=== PATIENT | female | born 1975 | race American Indian/Alaskan Native ===

== ENCOUNTER 2018-09-18 22:30 | Inpatient (IN) | payer MEDICAID ==
[2018-09-18] MEDS ORDERED: SUBLIMAZE IV PRN (22:48)
[2018-09-18] MEDS ORDERED: ZOFRAN IV PRN (22:48)
--- NOTE | 2018-09-18 22:58 | History and Physical Report ---
History of Present Illness Date of examination: 09/18/18 (pt arrived by EMS after delivering @ home; placenta still inside) Date of admission: 09/18/18 22:30 History of present illness: Pt states she did not know she was until 2 weeks ago, "I thought I was going through the change." EDC unknown NICU estimates the baby to be approx 35-36 weeks 1EAB 1 SAB Pt denies any complications with any of her deliveries All vaginal Med HX denies Surgical HX denies Smokes 1-2 Black n Milds QD Was smoking Marijuana until she was told she was Denies ETOH Medications and Allergies Active Meds: Active Medications Fentanyl (Sublimaze) 100 mcg IV Q2H PRN PRN Reason: Labor Pain Lactated Ringer's (Lactated Ringers) 1,000 mls @ 125 mls/hr IV DIRECT MANDY Oxytocin/Sodium Chloride (Pitocin/Ns 20 Unit/1000ml Drip) 20 units in 1,000 mls @ 125 mls/hr IV DIRECT MANDY Ondansetron HCl (Zofran) 4 mg IV Q8H PRN PRN Reason: Nausea And Vomiting - Vital Signs Vital signs: Vital Signs Pulse BP 75 126/57 09/18/18 22:50 09/18/18 22:50 Temp Pulse Resp BP Pulse Ox 75 126/57 09/18/18 22:50 09/18/18 22:50 Results All other labs normal. Assessment and Plan 43yo now with this delivery.Home Delivery No PNC AMA All labs ordered UDS ordered
[2018-09-18] MEDS ORDERED: PITOCin/NS 20 UNIT/1000ML DRIP 20 UNITS/1,000 ML BAG IV SCH (23:00)
[2018-09-18] MEDS ORDERED: LACTATED RINGERS 1,000 ML IV SCH (23:00)
--- NOTE | 2018-09-18 23:06 | Procedure Note ---
OB Delivery Note - Delivery Date of Delivery: 09/18/18 Watch Adjuster: KENDY HAYES (delivered @ home) Estimated blood loss: 500cc - Vaginal Delivery presentation: vertex Intrapartum events: no care - Infant A at 1 minute: 5 at 5 minutes: 6 (assigned by EMS) Gender: Female (wgt 4-12; baby stable in NICU)
[2018-09-18] MEDS ORDERED: IBUPROFEN PO ONE (23:10)
[2018-09-18] MEDS ORDERED: LANSINOH TP PRN (23:11)
[2018-09-18] MEDS ORDERED: PHENERGAN PO PRN (23:11)
[2018-09-18] MEDS ORDERED: DULCOLAX PR PRN (23:11)
[2018-09-18] MEDS ORDERED: TUCKS PAD TP PRN (23:11)
[2018-09-18] MEDS ORDERED: BENADRYL PO PRN (23:11)
[2018-09-18] MEDS ORDERED: PHENERGAN PR PRN (23:11)
[2018-09-18] MEDS: IBUPROFEN PO SCH (23:15)
[2018-09-18 23:37] LABS: Hepatitis C Virus Antibody Non-Reactive (NonReactive)
[2018-09-18 23:38] LABS: Basophils # (Auto) 0.1 K/mm3 (0.0-0.1); Basophils % (Auto) 1.1 % (0.0-1.8); Eosinophils % (Auto) 0.4 % (0.0-4.3); Hematocrit 40.4 % (30.3-42.9); Hemoglobin 14.2 gm/dl (10.1-14.3); Lymphocytes # (Auto) 2.5 K/mm3 (1.2-5.4); Lymphocytes % (Auto) 27.9 % (13.4-35.0); Mean Corpuscular HGB Conc 35 % (30-34); Mean Corpuscular Volume 104 fl (79-97); Monocytes # (Auto) 0.4 K/mm3 (0.0-0.8); Monocytes % (Auto) 4.2 % (0.0-7.3); Platelet Count 204 K/mm3 (140-440); Red Blood Count 3.91 M/mm3 (3.65-5.03); Red Cell Distribution Width 12.9 % (13.2-15.2)
[2018-09-18] MEDS ORDERED: SODIUM CHLORIDE FLUSH SYRINGE 10 ML IV PRN (23:45)
[2018-09-19 00:05] LABS: Bilirubin,Urine NEG (Negative); Blood,Urine MOD (Negative); Color,Urine Yellow (Yellow); Mucus,Urine FEW /HPF; Protein,Urine <15 mg/dL mg/dL (Negative); Urobilinogen,Urine < 2.0 mg/dL (<2.0)
[2018-09-19 00:29] LABS: Amphetamine Screen,Urine PRESUMPTIVE NEGATIVE; Benzodiazepines Screen,Urine PRESUMPTIVE NEGATIVE; Cocaine Screen,Urine PRESUMPTIVE NEGATIVE; Methadone Screen,Urine PRESUMPTIVE NEGATIVE; Opiate Screen,Urine PRESUMPTIVE NEGATIVE
[2018-09-19 00:48] LABS: Cannabinoid Screen,Urine PRESUMPTIVE POSITIVE
[2018-09-19] MEDS: IBUPROFEN PO SCH ×4 (05:02→23:25)
[2018-09-19] MEDS ORDERED: BOOSTRIX IM ONE (06:00)
--- NOTE | 2018-09-19 08:15 | Progress Note ---
Assessment and Plan patient OOB and dressed in street clothes. Pt reports bleeding is very light. Plans on breast and bottle feeding. VSSAF, post delivery H&H ordered for 11:11 this AM. Case management consult ordered. Continue current pathway. - Patient Problems (1) Encounter for care after unplanned out of hospital delivery Current Visit: Yes Status: Acute Subjective - Subjective Date of service: 09/19/18 Principal diagnosis: day #1 s/p home delivery, no PNC Patient reports: appetite normal, voiding normally, pain well controlled, ambulating normally, no dizzy ambulation, no nauseated : in NICU, bottle feeding Objective - Vital Signs Latest vital signs: Vital Signs Temp Pulse Resp BP Pulse Ox 09/19/18 04:08 98.7 F 73 16 117/55 96 09/19/18 00:53 98.6 F 63 18 125/69 99 09/19/18 00:10 68 154/71 09/18/18 23:54 80 126/73 09/18/18 23:39 59 L 133/72 09/18/18 23:30 16 09/18/18 23:24 69 159/78 09/18/18 23:15 16 09/18/18 23:09 81 133/93 09/18/18 22:54 78 141/66 09/18/18 22:50 75 126/57 Intake and Output 09/18/18 09/19/18 09/19/18 23:59 07:59 15:59 Intake Total 200 Output Total 200 Balance 0 Intake: Oral 200 Output: Urine 200 Void 200 Other: Total, Intake Amount 200 Total, Output Amount 200 Weight 47.627 kg Estimated Blood Loss 500 - Exam Breasts: Present: normal Cardiovascular: Present: Regular rate Lungs: Present: Clear to auscultation, Normal air movement Abdomen: Present: normal appearance, soft Uterus: Present: normal, firm, fundal height at umbilicus Extremities: Present: normal - Labs Labs: Abnormal lab results 09/18/18 Range/Units 22:52 MCV 104 H (79-97) fl MCH 36 H (28-32) pg MCHC 35 H (30-34) % RDW 12.9 L (13.2-15.2) %
[2018-09-19] MEDS ORDERED: PRENATAL VITAMIN PO SCH (10:00)
[2018-09-19] MEDS ORDERED: COLACE PO SCH (10:00)
[2018-09-19 12:50] LABS: Hematocrit 33.6 % (30.3-42.9); Hemoglobin 11.4 gm/dl (10.1-14.3)
[2018-09-19] MEDS: MILK OF MAGNESIA PO PRN ×2 (12:54→22:13)
[2018-09-19] MEDS: TYLENOL PO PRN (22:13)
[2018-09-19] MEDS ORDERED: M-M-R II VACCINE SUB-Q ONE (23:11)
[2018-09-20] MEDS: TYLENOL PO PRN (02:47)
--- NOTE | 2018-09-20 06:15 | Discharge Summary ---
Providers - Providers Date of Admission: 09/18/18 22:30 Date of discharge: 09/20/18 (pt agrees with d/c) Attending physician: DILSHAD RICHARD 09/19/18 08:09 Consult to Case Management [CONS] Routine Services Needed at Discharge: Other Notified:: case management Phone number called:: [phone]. [phone] Was contact made?: Yes Additional Physician Instructions: no care, +THC, home delivery premature baby Primary care physician: [employer] Hospitalization Reason for admission: other (delivered at home) Episiotomy: none Laceration: none Other procedures: none complications: none Discharge diagnosis: delivery [place] baby: female Hospital course: home delivery pt OOB for AM care VSS FF below umb Lochia scant Perineum intact H&H stable Pt is asymptomatic Doing well P: d/c today f/u 6 weeks PP care Condition at discharge: Good Disposition: DC-01 TO HOME OR SELFCARE - Discharge Diagnoses (1) Normal spontaneous vaginal delivery Status: Acute Comment: RTO for PP care in 6 weeks Plan - Provider Discharge Summary Activity: routine, no sex for 6 weeks, no heavy lifting 4 weeks, no strenuous exercise Diet: routine Instructions: routine Additional instructions: [] Smoking cessation referral if applicable(refer to patient education folder for contact #) [] Refer to [facility] Booklet Call your doctor immediately for: * Fever > 100.5 * Heavy vaginal bleeding ( >1 pad per hour) * Severe persistent headache * Shortness of breath * Reddened, hot, painful area to leg or breast * Drainage or odor from incision. * Keep incision clean and dry at all times and follow doctor's instructions regarding bathing/showering - Follow up plan Follow up: PRIMARY CARE, [Primary Care Provider] - 7 Days KENDY HAYES CNM [Advanced Practice Nurse] - 6 Weeks (Congratulations! Please call [phone] to schedule your appointment in 6 weeks. Motrin/ibuprofen for cramping/pain. Call with concerns.)
[2018-09-20] MEDS ORDERED: MILK OF MAGNESIA PO PRN (06:24)
[2018-09-20] MEDS: IBUPROFEN PO SCH (06:32)
[2018-09-20 09:20] VITALS: BP 119/67
== END 2018-09-20 09:21 | disposition home or self-care (01) | DRG 807 ==
LOC: LD 22:30 → OB 09-19 01:19
PROVIDERS: ADMIT Obstetrics & Gynecology; ATTEND Obstetrics & Gynecology
PROC: 10E0XZZ Delivery of Products of Conception, External Approach (ICD-10-PCS; principal; 2018-09-18)
PROC: 3E0234Z Introduction of Serum, Toxoid and Vaccine into Muscle, Percutaneous Approach (ICD-10-PCS; 2018-09-19)
DX: O99.325 Drug use complicating the puerperium (principal); Z37.0 Single live birth; Z23 Encounter for immunization; F12.90 Cannabis use, unspecified, uncomplicated
CPT/HCPCS: 36415; 80307; 81001; 85014; 85018; 85025; 85660; 86592; 86706; 86762; 86803; 86850; 86900; 86901; 87806; 88307; 90471; 90715; G0378; J2590; J3010